=== PATIENT | female | born 1940 | race Caucasian/White ===

== ENCOUNTER 2017-11-04 12:03 | Observation (INO) | payer OTHER, MEDICARE ==
[~2017-11-04] VITALS: Ht 157.5 cm; Wt 55.5 kg
[~2017-11-04 12:03] MED LIST: ASPIRIN EC81 M1 PO; ATORVASTATIN CA10 M1 PO; DIOVAN40 MG PO; IBU600 MG PO; LEVOTHYROXINE100 MC1 PO; METOPROLOL SUCC25 M1 PO; SERTRALINE HCL50 MG PO
[2017-11-04 12:35] LABS: ABSOLUTE BASOPHIL COUNT 0 /CUMM (0.0-0.2); ABSOLUTE EOSINOPHIL COUNT 0.1 /CUMM (0.0-0.7); ABSOLUTE GRANULOCYTE CT 9.3 /CUMM (1.4-6.5); ABSOLUTE LYMPH COUNT 2.3 /CUMM (1.2-3.4); BASOPHIL % 0.3 % (0.0-2.0); GRANULOCYTE % 72.8 % (42.2-75.2); HEMATOCRIT 40.3 % (37-47); MEAN CORPUSCULAR HGB 29.3 PG (27.0-31.0); MEAN CORPUSCULAR HGB CONC 33.3 G/DL (33.0-37.0); MEAN CORPUSCULAR VOLUME 87.8 FL (81.0-99.0); MEAN PLATELET VOLUME 9.7 FL (7.4-10.4); PLATELET COUNT 240 /CUMM (130-400); RBC DISTRIBUTION WIDTH 13.1 % (11.5-14.5); RED BLOOD CELL CT 4.59 /CUMM (4.20-5.40); WHITE BLOOD CELL COUNT 12.7 /CUMM (4.8-10.8)
--- NOTE | 2017-11-04 12:37 | ED CARDIAC/CP/PALPITATIONS ---
See Addendum History of Present Illness General Chief Complaint: General Adult Stated Complaint: 1 HR AGO THROAT TIGHTNESS, PAIN ACROSS SHOULDERS Source: patient Exam Limitations: no limitations Vital Signs & Intake/Output Vital Signs & Intake/Output Vital Signs Date Time Temp Pulse Resp B/P B/P Pulse O2 O2 Flow FiO2 Mean Ox Delivery Rate 11/04 1953 99.3 93 18 108/57 95 Room Air 11/04 1817 99.1 87 17 114/59 95 Room Air 11/04 1502 97.1 83 16 151/64 98 Room Air 11/04 1339 97 Room Air 11/04 1206 78 16 119/63 97 Room Air Allergies Coded Allergies: Sulfa (Sulfonamide Antibiotics) (UNKNOWN 08/03/15) Reconcile Medications Aspirin (Ecotrin*) 81 MG TABLET.DR 1 TAB PO QPM PROPHO (Reported) Atorvastatin Calcium 10 MG TABLET 1 TAB PO QPM CHOLESTEROL (Reported) Cholecalciferol (Vitamin D3) (Vitamin D) 5,000 UNIT TABLET 1 TAB PO QPM VITAMIN SUPPORT (Reported) Cyanocobalamin (Vitamin B-12) 1,000 MCG TABLET 1 TAB PO QPM VITAMIN SUPPORT ( Reported) Levothyroxine Sodium 100 MCG TABLET 1 TAB PO DAILY AC THYROID (Reported) Magnesium Oxide (Magnesium) 250 MG TABLET 1 TAB PO QPM SUPPLEMENT (Reported) Metoprolol Succinate 25 MG TAB 0.5 TAB PO QPM HTN (Reported) Sertraline HCl 50 MG TABLET 1 TAB PO QPM DEPRESSION (Reported) Valsartan (Diovan) 40 MG TABLET 1 TAB PO DAILY HTN (Reported) Triage Note: 77 Y/O FEMALE BILATERAL "SHOULDER PAIN" X 1 HOUR. STATES SHE FEELS LIKE SHE CANNOT TAKE A DEEP BREATH, ENDORSES SOB - "ITS NOT BECAUSE I AM EXERTED, ITS BECAUSE OF THE TIGHTNESS". PT DENIES C/P. DENIES NAUSEA. EVAL'D BY JODY MONTGOMERY TAKEN TO ROOM 2 FOR EKG/BLOODWORK Triage Nurses Notes Reviewed? yes Onset: Gradual Duration: getting worse Timing: single episode today Location: substernal HPI: Patient is a 77-year-old female with past medical history of hypertension hyperlipidemia hypothyroidism who presents emergency room stating that when she woke up today she was in her normal state of health at approximate 7:30 AM she had toast and peanut butter 3 hours later at 10:30 she had a gradual onset of throat tightness discomfort with associated symptoms of bilateral shoulder pain substernal chest heaviness lightheaded sensation nausea and dizziness, patient tried to eat a early lunch however could not do this because of her symptoms in which patient presents emergency room. No aspirin was administered today Denies any fever chills cough hemoptysis leg swelling abdominal pain Patient's lottery clerk Augustine Randhawa MD (Eugene Sandhu) Past History Travel History Traveled to [place] past 21 day No Medical History Any Pertinent Medical History? see below for history Neurological: NONE EENT: NONE Cardiovascular: hypertension, hyperlipidemia Respiratory: NONE Gastrointestinal: GERD Hepatic: NONE Renal: NONE Musculoskeletal: NONE Psychiatric: NONE Endocrine: hypothyroidism Blood Disorders: NONE Cancer(s): breast cancer IT OPERATIONS SPECIALIST/Reproductive: NONE Surgical History Surgical History: right mastectomy 2002 Psychosocial History What is your primary language Slovenian Tobacco Use: Never used Family History Hx Contributory? No (Eugene Sandhu) Review of Systems Review of Systems Constitutional: Reports: no symptoms. EENTM: Reports: see HPI. Respiratory: Reports: see HPI. Cardiovascular: Reports: see HPI. GI: Reports: see HPI. Genitourinary: Reports: no symptoms. Musculoskeletal: Reports: no symptoms. Skin: Reports: no symptoms. Neurological/Psychological: Reports: no symptoms. Hematologic/Endocrine: Reports: no symptoms. Immunologic/Allergic: Reports: no symptoms. All Other Systems: Reviewed and Negative (Eugene Sandhu) Physical Exam Physical Exam General Appearance: no apparent distress, alert, comfortable Head: atraumatic Eyes: Bilateral: normal appearance. Ears, Nose, Throat: hearing grossly normal Neck: normal inspection Respiratory: normal breath sounds, chest non-tender Cardiovascular: regular rate/rhythm Gastrointestinal: normal bowel sounds, soft, non-tender Extremities: normal inspection Skin: intact, normal color, warm/dry Core Measures ACS in differential dx? Yes CVA/TIA Diagnosis No Sepsis Present: No Sepsis Focused Exam Completed? No (Eugene Sandhu) Progress Differential Diagnosis: AMI, aortic dissection, atrial fibrillation, cholecystitis, CHF/pulm edema, costochondritis, hyperkalemia, hypovolemia, hyperthyroid, hyperventilation, intracranial hemorrhage, musculoskeletal pain, myocarditis, pancreatitis, pericarditis, pneumonia, pneumothorax, PSVT, pulmonary embolism, PUD/GERD, PVCs/PACs, respiratory failure, sepsis, unstable angina, V-fib/V-Tach, WPW syndrome Plan of Care: Orders Procedure Date/time Status Heart Healthy Diet 11/05 B Active BASIC ELECTROLYTES PLUS BUN&CR 11/05 0600 Active Heart Healthy Diet 11/04 D Complete TROPONIN LEVEL 11/04 1800 Complete EKG 11/04 1800 Active PT Evaluate & Treat 11/04 1740 Active Pathway - chart 11/04 1740 Active House Staff 11/04 1740 Active Patient Data 11/04 1740 Active CASE MANAGEMENT CONSULT 11/04 1740 Active Code Status 11/04 1740 Active Patient Data 11/[address] in observation 11/04 1558 Active Misc Message 11/04 1558 Active ED Holding Orders 11/04 1558 Active Vital Signs 11/04 1558 Active Code Status 11/04 1558 Complete Intake & Output 11/04 1339 Active Add-on Test (ER Only) 11/04 1310 Active TSH REFLEX 11/04 1220 Complete LIPID PANEL 11/04 1220 Complete D-DIMER 11/04 1220 Complete TROPONIN LEVEL 11/04 1210 Complete COMPREHENSIVE METABOLIC PANEL 11/04 1210 Complete CBC WITHOUT DIFFERENTIAL 11/04 1210 Complete EKG 11/04 1210 Active Lab Add-on Test 11/04 UNK Active VTE Mechanical Prophylaxis 11/04 UNK Active Vital Signs 11/04 UNK Active MISTAKE 11/04 UNK Active Telemetry/Floor Finisher Helper 11/04 UNK Active Intake & Output 11/04 UNK Active Current Medications Sig/Stan Start time Last Medication Dose Stop Time Status Admin Atorvastatin Calcium 40 MG 1700 11/05 1700 AC (Lipitor) Enoxaparin Sodium 40 MG DAILY 11/05 09 AC (Lovenox) Losartan Potassium 12.5 MG DAILY 11/05 09 AC (Cozaar) Levothyroxine Sodium 0.1 MG DAILY AC 11/05 0700 AC (Synthroid) Aspirin Buffered 81 MG QPM 11/04 2100 AC (Ecotrin) Metoprolol Succinate 12.5 MG QPM 11/04 2100 AC (Toprol XL) Sertraline HCl 50 MG QPM 11/04 2100 AC (Zoloft) Nitroglycerin 0.4 MG Q 5 MINUTES X 3 DO.. 11/04 1800 AC (Nitrostat) Acetaminophen 650 MG Q6P PRN 11/04 1745 AC (Tylenol) Laboratory Tests 11/04/17 1825: Troponin I < 0.01 11/04/17 1220: Anion Gap 12, Estimated GFR > 60, BUN/Creatinine Ratio 24.3, Glucose 99, Calcium 9.8, Total Bilirubin 0.7, AST 25, ALT 29, Alkaline Phosphatase 71, Troponin I < 0.01, Total Protein 7.4, Albumin 4.1, Globulin 3.3, Albumin/Globulin Ratio 1.2, Triglycerides 150, Cholesterol 125, LDL Cholesterol, Calc 45 L, HDL Cholesterol 50, Cholesterol/HDL Ratio 2, TSH &T3 &Free T4 Intrp 3.100, D-Dimer High Sensitivty < 200, CBC w Diff NO MAN DIFF REQ, RBC 4.59, MCV 87.8, MCH 29.3, MCHC 33.3, RDW 13.1, MPV 9.7, Gran % 72.8, Lymphocytes % 18.1 L, Monocytes % 7.8, Eosinophils % 1.0, Basophils % 0.3, Absolute Granulocytes 9.3 H, Absolute Lymphocytes 2.3, Absolute Monocytes 1.0 H, Absolute Eosinophils 0.1, Absolute Basophils 0 Patient upon initial presentation is complaining of substernal chest heaviness with concerning associated symptoms patient was given aspirin and nitroglycerin after this was administered patient had complete resolution of her symptoms, discussed patient with Augustine Randhawa MD who is aware of patient's initial clinical presentation and will consult for placement in observation Initial EKG shows no concerns of ischemia and initial troponin was unremarkable as well as d-dimer as well as chest x-ray. Discussed placement and observation with patient who agrees and has no questions Discussed patient with Dr. Nix who is covering for Dr. Craven patient will be placed in telemetry observation Diagnostic Imaging: Viewed by Me: Radiology Read. Radiology Impression: no acute abnormality, no fracture Initial ED EKG: normal intervals, normal QRS complex, NSR 61 BPM Comments: PATIENT: VÍCTOR FAUSTIN PRESENT AGE: 77 PATIENT ACCOUNT NO: [id number] : 42 LOCATION: [facility] ORDERING PHYSICIAN: Davide VERA SERVICE DATE: 11/04/17-1210 EXAM TYPE: RAD - XRY-CHEST XRAY, TWO VIEWS EXAMINATION: XR CHEST CLINICAL INFORMATION: Shortness of breath. COMPARISON: 05/12/2015 TECHNIQUE: 2 views of the chest were obtained. FINDINGS: The lungs are well expanded. There is no focal consolidation, edema, or effusion. No pneumothorax. The cardiomediastinal silhouette is within normal limits. No acute osseous abnormality. Right axillary surgical clips are present. IMPRESSION: No acute pulmonary findings. DICTATED BY: Vicente Mead MD DATE/TIME DICTATED:11/04/17 1359 PHOTO SPECIALIST:ROMERO DATE/TIME TRANSCRIBED:11/04/17 / (Eugene Sandhu) Departure Departure Disposition: STILL A PATIENT Condition: Stable Clinical Impression Primary Impression: Angina at rest Referrals: Herber CHACON,Dalton Moctezuma (PCP/Family) Departure Forms: Customer Survey General Discharge Information Observation Note Spoke With: Valentin Nix MD Physician Advisor Notified: ROMEO CHACON,BRIE Carden[address] Place Patient In: Non-ED OBS Care Area Rationale for Observation: My rational for observation is as follows [patient requires telemetry observation for concerns of angina with improvement of nitroglycerin of her chest pain, patient requires cardiology consultation and repeat labs repeat EKG] . (Eugene Sandhu) PA/DEV OPS ENGINEER Co-Sign Statement Statement: ED Attending supervision documentation- [X] I saw and evaluated the patient. I have also reviewed all the pertinent lab results and diagnostic results. I agree with the findings and the plan of care as documented in the PA's/DEV OPS ENGINEER's documentation. Patient presents for evaluation of throat tightness and bilateral shoulder pain. Physical examination reveals a relatively comfortable appearing woman with an unremarkable heart and lung examination. [] I have reviewed the ED Record and agree with the PA's/DEV OPS ENGINEER's documentation. [] Additions or exceptions (if any) to the PAs/DEV OPS ENGINEER's note and plan are summarized below: [] (Modesta CHACON,Jesus Rico) Critical Care Note Critical Care Note Critical Care Time: 30-74 min (Eugene Sandhu)
--- NOTE | 2017-11-04 14:08 | RADIOLOGY REPORT ---
EXAMINATION: XR CHEST CLINICAL INFORMATION: Shortness of breath. COMPARISON: 05/12/2015 TECHNIQUE: 2 views of the chest were obtained. FINDINGS: The lungs are well expanded. There is no focal consolidation, edema, or effusion. No pneumothorax. The cardiomediastinal silhouette is within normal limits. No acute osseous abnormality. Right axillary surgical clips are present. IMPRESSION: No acute pulmonary findings.
[2017-11-04] MEDS ORDERED: VITAMIN B-121000 MC3 PO (15:04)
[2017-11-04] MEDS ORDERED: MAGNESIUM250 M2 PO (15:04)
[2017-11-04] MEDS ORDERED: VITAMIN D5000 UNIT PO (15:05)
--- NOTE | 2017-11-04 17:25 | History & Physical ---
Rima Lee MDapna 11/04/17 3201: General Information and HPI MD Statement: I have seen and personally examined DHARA FAUSTIN and documented this H&P. The patient is a 77 year old F who presented with a patient stated chief complaint of [neck tightness]. Source of Information: patient Exam Limitations: no limitations History of Present Illness: 77-year-old female with past medical history of hypertension, hyperlipidemia, hypothyroidism, breast cancer [2001] was on chemo and radio, came to [place] ER with complaints of neck fullness and tightness, right arm pressure//discomfort more compared to the left. Patient was in usual state of health until today morning. Patient had peanut butter for her breakfast and 3 hours later patient suddenly felt neck fullness followed by discomfort on the right arm radiating later to the left arm. She tried to eat but could not and also felt lightheaded throughout this episode. She denies chest pain, palpitation, shortness of breath, nausea, vomiting, abdominal pain, headache, blackout, weakness, tingling sensation, numbness, fall, loss of consciousness during the same time. Patient never had these kind of symptoms in the past. Patient sees Dr. Craven and Dr. Randhawa for the past 2-[address] Randhawa for? Low ejection fraction with an EF of 50%. Patient also had cardiac cath done 2 years ago. Patient says she had hepatitis as a child [never took any treatment], questionable tuberculosis in the past with no history of any treatment. Patient's son who is 40 years old is diagnosed with congenital heart disease with heart failure. Allergies/Medications Allergies: Coded Allergies: Sulfa (Sulfonamide Antibiotics) (UNKNOWN 08/03/15) Home Med list Aspirin (Ecotrin*) 81 MG TABLET.DR 1 TAB PO QPM PROPHO (Reported) Atorvastatin Calcium 10 MG TABLET 1 TAB PO QPM CHOLESTEROL (Reported) Atorvastatin Calcium 40 MG TABLET 40 MG PO 1700 Heart Cholecalciferol (Vitamin D3) (Vitamin D) 5,000 UNIT TABLET 1 TAB PO QPM VITAMIN SUPPORT (Reported) Cyanocobalamin (Vitamin B-12) 1,000 MCG TABLET 1 TAB PO QPM VITAMIN SUPPORT ( Reported) Levothyroxine Sodium 100 MCG TABLET 1 TAB PO DAILY AC THYROID (Reported) Magnesium Oxide (Magnesium) 250 MG TABLET 1 TAB PO QPM SUPPLEMENT (Reported) Metoprolol Succinate 25 MG TAB 0.5 TAB PO QPM HTN (Reported) Sertraline HCl 50 MG TABLET 1 TAB PO QPM DEPRESSION (Reported) Valsartan (Diovan) 40 MG TABLET 1 TAB PO DAILY HTN (Reported) Compliance With Home Meds: GOOD Past History Travel History Traveled to [place] past 21 day No Medical History Neurological: NONE EENT: NONE Cardiovascular: hypertension, hyperlipidemia Respiratory: NONE Gastrointestinal: GERD Hepatic: NONE Renal: NONE Musculoskeletal: NONE Psychiatric: NONE Endocrine: hypothyroidism Blood Disorders: NONE Cancer(s): breast cancer ACCOUNTING CONSULTANT/Reproductive: NONE Surgical History Surgical History: right mastectomy 2002 ECHO Results (as available) EF% 50 Past Family/Social History Family History Relations & Conditions if any MOTHER (breast cancer). Psychosocial History Where do you live? Home Who Do You Live With? spouse Services at Home: None Primary Language: Romanian Smoking Status: Never Smoked ETOH Use: occasional use Functional Ability ADLs Independent: dressing, eating, toileting, bathing. Ambulation: independent IADLs Independent: shopping, housework, finances, food prep, telephone, transportation , medication admin. Review of Systems Review of Systems Constitutional: Reports: no symptoms. Cardiovascular: Reports: no symptoms. Respiratory: Reports: no symptoms. GI: Reports: no symptoms. Exam & Diagnostic Data Last 24 Hrs of Vital Signs/I&O Vital Signs Date Time Temp Pulse Resp B/P B/P Pulse O2 O2 Flow FiO2 Mean Ox Delivery Rate 11/04 1817 99.1 87 17 114/59 95 Room Air 11/04 1502 97.1 83 16 151/64 98 Room Air 11/04 1339 97 Room Air 11/04 1206 78 16 119/63 97 Room Air Intake & Output 11/04 1600 11/04 0800 11/04 0000 Intake Total 0 Output Total Balance 0 Intake, IV 0 Patient 125 lb Weight Weight Reported by Patient Measurement Method Physical Exam General Appearance Alert, Oriented X3, Cooperative, No Acute Distress Neck No JVD, No thryomegaly, +2 Carotid Pulse wo Bruit Cardiovascular Normal S1, Normal S2, systolic murmur Lungs Clear to Auscultation Abdomen Soft, No Tenderness, No Hepatospenomegaly Neurological Normal Speech, Strength at 5/5 X4 Ext, Normal Tone, Sensation Intact, Cranial Nerves 3-12 NL Extremities No Cyanosis, No Edema, Normal Pulses Last 24 Hrs of Labs/Italo: Laboratory Tests 11/04/17 1825: Troponin I < 0.01 11/04/17 1220: Anion Gap 12, Estimated GFR > 60, BUN/Creatinine Ratio 24.3, Glucose 99, Calcium 9.8, Total Bilirubin 0.7, AST 25, ALT 29, Alkaline Phosphatase 71, Troponin I < 0.01, Total Protein 7.4, Albumin 4.1, Globulin 3.3, Albumin/Globulin Ratio 1.2, Triglycerides 150, Cholesterol 125, LDL Cholesterol, Calc 45 L, HDL Cholesterol 50, Cholesterol/HDL Ratio 2, TSH &T3 &Free T4 Intrp 3.100, D-Dimer High Sensitivty < 200, CBC w Diff NO MAN DIFF REQ, RBC 4.59, MCV 87.8, MCH 29.3, MCHC 33.3, RDW 13.1, MPV 9.7, Gran % 72.8, Lymphocytes % 18.1 L, Monocytes % 7.8, Eosinophils % 1.0, Basophils % 0.3, Absolute Granulocytes 9.3 H, Absolute Lymphocytes 2.3, Absolute Monocytes 1.0 H, Absolute Eosinophils 0.1, Absolute Basophils 0 Diagnostic Data EKG Results Left atrial abnormality, left ventricular hypertrophy, normal axis Assessment/Plan Assessment: 77-year-old female with past medical history of hypertension, hyperlipidemia, hypothyroidism, breast cancer [2001] was on chemo and radio, came to [place] ER with complaints of neck fullness and tightness, right arm pressure//discomfort more compared to the left. Admission vitals Temperature 97.1, pulse rate 83, respiratory rate 16, blood pressure 151/64, saturation 98 at room air Admission labs WBC 12.7, hemoglobin 13.4, platelet count 240, sodium 142, potassium 4, chloride 104, BUN 17, creatinine 0.7, troponin 0 0.01, d-dimer 200 Imaging Chest x-ray No acute pulmonary findings. Assessment and plan 1. Unstable angina 2. Hypertension 3. Hypo thyroidism * OBSERVE IN telemetry * Every shift vitals * Troponin and EKG 2 more sets * Continue her home medication atorvastatin, losartan 2.5 mg, levothyroxine, sublingual nitroglycerin as needed, citrulline 50, metoprolol 12.5, aspirin. * Cardiology consult tomorrow. Core Measures/Misc (01/27) Acute Coronary Syndrome ACS Diagnosis: No Congestive Heart Failure Congestive Heart Failure Diagnosis No Cerebrovascular Accident CVA/TIA Diagnosis: No VTE (View Protocol) VTE Risk Factors Age>40 No Mechanical VTE Prophylaxis d/t Other No VTE Pharm Prophylaxis d/t Other Sepsis (View protocol) Sepsis Present: No If YES complete Sepsis Event Note If YES complete Sepsis Event Note Max CHACON,[facility] 11/04/171958: Core Measures/Misc (01/27) Sepsis (View protocol) If YES complete Sepsis Event Note If YES complete Sepsis Event Note Resident Review Statement Resident Statement: examined this patient, discussed with international travel consultant, agreed with international travel consultant, discussed with family, reviewed EMR data (avail), discussed with nursing Other Findings: Dhara a 77 year old female with past medical history significant for hypertension, hyperlipidemia, hypothyroidism, right-sided breast cancer status post mastectomy, chemotherapy, and radiotherapy follow-up with Dr. Ornelas., cardiac cath in [facility] couple of years ago for clear reason with no stent placement, hepatitis?, TB?. Patient presented to ED with chief complaint of bilateral shoulder pain associated with lightheadedness, shortness of breath. Patient resolved with nitroglycerin and aspirin in ED. Patient is hemodynamically stable and denied any chest pain, shortness of breath, palpitation at the time of interview. Initial troponins and EKG are negative. Patient follow with Augustine Randhawa MD as a referral from her PCP 2-3 years ago for abnormal EKG. Echocardiogram was obtained in August per patient's report. Problem list #Unstable angina (chest tightness and bilateral shoulder pain at rest relieved by nitroglycerin and aspirin) #Hypertension, hyperlipidemia #Hypothyroidism Plan Observe in telemetry floor Vital signs every shift Trend drops and EKG Aspirin, Lipitor 40 mg, nitroglycerin tabs when necessary chest pain Obtain lipid profile Obtain TSH with reflex to T4, T3 Will hold off ordering echocardiogram since the patient had a recent echogram in August, follow cardiology recommendation Cardiology consultation Augustine Randhawa MD Continue home medication Repeat PEEP in a.m. Patient reporting history of hepatitis, will obtain hepatitis panel Records from PCP regarding hepatitis and history of TB DVT prophylaxis Lovenox Code full Diet heart healthy Valentin Nix MD 11/05/17 0928: Assessment/Plan As Ranked By This Provider Problem List: 1. Chest pain Core Measures/Misc (01/27) Sepsis (View protocol) If YES complete Sepsis Event Note If YES complete Sepsis Event Note
--- NOTE | 2017-11-04 18:20 | PN- Gen Med ---
Assessment/Plan Medical Assessment: 77 year old female patient of Dr Craven, this AM had pressure in her chest around 10 AM came tot he ER as soon as NTG was given the symptoms dissappeared. will keep in observation serial EKGs and troponins cardiology follow up. Current Medications Sig/Stan Start time Last Medication Dose Route Stop Time Status Admin Acetaminophen 650 MG Q6P PRN 11/04 1745 UNVr PO Aspirin 0 .STK-MED ONE 11/04 1322 DC PO Aspirin 325 MG ONCE ONE 11/04 1315 DC 11/04 PO 11/04 1316 1328 Aspirin Buffered 81 MG QPM 11/04 2100 UNVr PO Atorvastatin Calcium 40 MG 1700 11/05 1700 UNVr PO Enoxaparin Sodium 40 MG DAILY 11/05 0900 UNVr SC Levothyroxine Sodium 0.1 MG DAILY AC 11/05 0700 AC PO Losartan Potassium 40 MG DAILY 11/05 0900 AC PO Metoprolol Succinate 12.5 MG QPM 11/04 2100 AC PO Nitroglycerin 0.4 MG Q 5 MINUTES X 3 DO.. 11/04 1800 AC SL Nitroglycerin 0 .STK-MED ONE 11/04 1323 DC SL Nitroglycerin 0.4 MG ONCE ONE 11/04 1315 DC 11/04 SL 11/04 1316 1328 Sertraline HCl 50 MG QPM 11/04 2100 AC PO Laboratory Tests 11/04/17 1220: Anion Gap 12, Estimated GFR > 60, BUN/Creatinine Ratio 24.3, Glucose 99, Calcium 9.8, Total Bilirubin 0.7, AST 25, ALT 29, Alkaline Phosphatase 71, Troponin I < 0.01, Total Protein 7.4, Albumin 4.1, Globulin 3.3, Albumin/Globulin Ratio 1.2, Triglycerides 150, Cholesterol 125, LDL Cholesterol, Calc 45 L, HDL Cholesterol 50, Cholesterol/HDL Ratio 2, TSH &T3 &Free T4 Intrp Pending, D-Dimer High Sensitivty < 200, CBC w Diff NO MAN DIFF REQ, RBC 4.59, MCV 87.8, MCH 29.3, MCHC 33.3, RDW 13.1, MPV 9.7, Gran % 72.8, Lymphocytes % 18.1 L, Monocytes % 7.8, Eosinophils % 1.0, Basophils % 0.3, Absolute Granulocytes 9.3 H, Absolute Lymphocytes 2.3, Absolute Monocytes 1.0 H, Absolute Eosinophils 0.1, Absolute Basophils 0 Vital Signs Date Time Temp Pulse Resp B/P B/P Pulse O2 O2 Flow FiO2 Mean Ox Delivery Rate 11/04 1817 99.1 87 17 114/59 95 Room Air 11/04 1502 97.1 83 16 151/64 98 Room Air 11/04 1339 97 Room Air 11/04 1206 78 16 119/63 97 Room Air Intake & Output 11/04 1600 Intake Total 0 Output Total Balance 0 Intake, IV 0 Patient 125 lb Weight Weight Reported by Patient Measurement Method Problem List: 1. Chest pain Subjective Review of Systems Constitutional: Reports: see HPI. Objective Last 24 Hrs of Vital Signs/I&O Vital Signs Date Time Temp Pulse Resp B/P B/P Pulse O2 O2 Flow FiO2 Mean Ox Delivery Rate 11/04 1817 99.1 87 17 114/59 95 Room Air 11/04 1502 97.1 83 16 151/64 98 Room Air 11/04 1339 97 Room Air 11/04 1206 78 16 119/63 97 Room Air Intake & Output 11/04 1600 11/04 0800 11/04 0000 Intake Total 0 Output Total Balance 0 Intake, IV 0 Patient 125 lb Weight Weight Reported by Patient Measurement Method Physical Exam General Appearance: Alert, Oriented X3, Cooperative, No Acute Distress Skin: No Rashes
[2017-11-04 22:23] VITALS: BP 128/64
[2017-11-05 06:39] VITALS: BP 104/50
--- NOTE | 2017-11-05 06:40 | PN-Observation ---
Observation Note Observation Note _ I have personally examined VÍCTOR FAUSTIN. her disposition is uncertain at this time. Before a determination can be made, she requires continued observation for the following reasons [unstable angina]. Assessment/Plan Medical Assessment: 77-year-old female with past medical history of hypertension, hyperlipidemia, hypothyroidism, breast cancer [2001] was on chemo and radio, came to [facility] with complaints of neck fullness and tightness, right arm pressure//discomfort more compared to the left. Assessment and plan 1. Unstable angina 2. Hypertension 3. Hypo thyroidism * Unstable angina-patient does not have any pain. Able to ambulate well without any chest pain. 3 sets of troponin and EKG negative. She was seen by Dr. Deleon today who suggested to discharge her and follow with him as outpatient. Otherwise patient will go with her home medication atorvastatin, losartan, levothyroxine. Problem List: 1. Angina at rest Subjective Follow-up For: Unstable angina Subjective: Patient seen and examined at bedside no overnight events. Denies chest pain, palpitation, nausea, vomiting, abdominal pain. Review of Systems Constitutional: Reports: no symptoms. Objective Last 24 Hrs of Vital Signs/I&O Vital Signs Date Time Temp Pulse Resp B/P B/P Pulse O2 O2 Flow FiO2 Mean Ox Delivery Rate 11/05 0854 72 118/72 11/05 0639 98.0 72 18 104/50 95 Room Air 11/04 2301 89 128/64 11/04 2223 98.2 90 18 128/64 96 Room Air 11/04 1954 99.3 93 18 108/57 95 Room Air 11/04 1817 99.1 87 17 114/59 95 Room Air Intake & Output 11/05 1600 11/05 0800 11/05 0000 Intake Total 220 220 Output Total Balance 220 220 Intake, Oral 220 220 Patient 122 lb Weight Weight Bed scale Measurement Method Physical Exam General Appearance: Alert, Oriented X3, Cooperative, No Acute Distress Cardiovascular: Regular Rate, Normal S1, Normal S2, No Murmurs Lungs: Normal Air Movement Abdomen: Soft, No Tenderness, No Hepatospenomegaly, No Masses Neurological: Normal Speech, Strength at 5/5 X4 Ext, Normal Tone, Sensation Intact, Cranial Nerves 3-12 NL Current Medications: Current Medications Sig/Stan Start time Last Medication Dose Route Stop Time Status Admin Acetaminophen 650 MG Q6P PRN 11/04 1745 DCD PO Aspirin Buffered 81 MG QPM 11/04 2100 DCD 11/04 PO 2300 Atorvastatin Calcium 40 MG 1700 11/05 1700 DCD PO Enoxaparin Sodium 40 MG DAILY 11/05 0900 DCD 11/05 SC 0854 Levothyroxine Sodium 0.1 MG DAILY AC 11/05 0700 DCD 11/05 PO 0543 Losartan Potassium 12.5 MG DAILY 11/05 0900 DCD 11/05 PO 0854 Metoprolol Succinate 12.5 MG QPM 11/04 2100 DCD 11/04 PO 2301 Nitroglycerin 0.4 MG Q 5 MINUTES X 3 DO.. 11/04 1800 DCD SL Sertraline HCl 50 MG QPM 11/04 2100 DCD 11/04 PO 2300 Last 24 Hrs of Labs/Mics: Laboratory Tests 11/05/17 1045: Troponin I < 0.01 11/05/17 0615: Anion Gap 9, Estimated GFR > 60, BUN/Creatinine Ratio 24.3, Hepatitis A IgM Ab NONREACTIVE, Hep Bs Antigen NONREACTIVE, Hep B Core IgM Ab Conf NONREACTIVE, Hepatitis C Antibody NONREACTIVE 11/04/17 1825: Troponin I < 0.01
[2017-11-05 08:54] VITALS: BP 118/72
--- NOTE | 2017-11-05 09:16 | Cons- Cardiology ---
General Information and HPI Consulting Request Requested By: lu History of Present Illness: This is a patient of Dr Major and group, i was not aware. Please disregard this note. Allergies/Medications Allergies: Coded Allergies: Sulfa (Sulfonamide Antibiotics) (UNKNOWN 08/03/15) Home Med List: Aspirin (Ecotrin*) 81 MG TABLET.DR 1 TAB PO QPM PROPHO (Reported) Atorvastatin Calcium 10 MG TABLET 1 TAB PO QPM CHOLESTEROL (Reported) Cholecalciferol (Vitamin D3) (Vitamin D) 5,000 UNIT TABLET 1 TAB PO QPM VITAMIN SUPPORT (Reported) Cyanocobalamin (Vitamin B-12) 1,000 MCG TABLET 1 TAB PO QPM VITAMIN SUPPORT ( Reported) Levothyroxine Sodium 100 MCG TABLET 1 TAB PO DAILY AC THYROID (Reported) Magnesium Oxide (Magnesium) 250 MG TABLET 1 TAB PO QPM SUPPLEMENT (Reported) Metoprolol Succinate 25 MG TAB 0.5 TAB PO QPM HTN (Reported) Sertraline HCl 50 MG TABLET 1 TAB PO QPM DEPRESSION (Reported) Valsartan (Diovan) 40 MG TABLET 1 TAB PO DAILY HTN (Reported) Past History Family History Relations & Conditions If Any: MOTHER (breast cancer). Exam & Diagnostic Data Vital Signs and I&O na Assessment/Plan Assessment/Plan na Consult Acknowledgment - Thank you for your consult request. Aspirin Buffered 81 MG QPM 11/04 2100 AC 11/04 PO 2300 Atorvastatin Calcium 40 MG 1700 11/05 1700 AC PO Enoxaparin Sodium 40 MG DAILY 11/05 0900 AC 11/05 SC 0854 Levothyroxine Sodium 0.1 MG DAILY AC 11/05 0700 AC 11/05 PO 0543 Losartan Potassium 12.5 MG DAILY 11/05 0900 AC 11/05 PO 0854 Metoprolol Succinate 12.5 MG QPM 11/04 2100 AC 11/04 PO 2301 Nitroglycerin 0.4 MG Q 5 MINUTES X 3 DO.. 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 Psychosocial History Where Do You Live? Home Who Do You Live With? spouse Services at Home: None Primary Language: [place] Citizen Smoking Status: Never Smoked ETOH Use: occasional use Functional Ability ADLs Independent: dressing, eating, toileting, bathing. Ambulation: independent IADLs Independent: shopping, housework, finances, food prep, telephone, transportation , medication admin. ECHO Results (as available) EF% 50 Exam & Diagnostic Data Vital Signs and I&O Vital Signs Date Time Temp Pulse Resp B/P B/P Pulse O2 O2 Flow FiO2 Mean Ox Delivery Rate 11/05 0854 72 118/72 11/05 0639 98.0 72 18 104/50 95 Room Air 11/04 2301 89 128/64 11/04 2223 98.2 90 18 128/64 96 Room Air 11/04 1954 99.3 93 18 108/57 95 Room Air 11/04 1817 99.1 87 17 114/59 95 Room Air 11/04 1502 97.1 83 16 151/64 98 Room Air 11/04 1339 97 Room Air 11/04 1206 78 16 119/63 97 Room Air Intake & Output 11/05 1600 11/05 0800 11/05 0000 11/04 1600 11/04 0800 11/04 0000 Intake Total 220 220 0 Output Total Balance 220 220 0 Intake, IV 0 Intake, Oral 220 220 Patient 122 lb 125 lb Weight Weight Bed scale Reported by Patient Measurement Method Labs/Italo Results: Laboratory Tests 11/05 11/04 11/04 0615 1825 1220 Chemistry Sodium (137 - 145 mmol/L) 141 142 Potassium (3.5 - 5.1 mmol/L) 4.2 4.0 Chloride (98 - 107 mmol/L) 105 104 Carbon Dioxide (22 - 30 mmol/L) 26 25 Anion Gap (5 - 16) 9 12 BUN (7 - 17 mg/dL) 17 17 Creatinine (0.5 - 1.0 mg/dL) 0.7 0.7 Estimated GFR (>60 ml/min) > 60 > 60 BUN/Creatinine Ratio (7 - 25 %) 24.3 24.3 Glucose (65 - 99 mg/dL) 99 Calcium (8.4 - 10.2 mg/dL) 9.8 Total Bilirubin (0.2 - 1.3 mg/dL) 0.7 AST (14 - 36 U/L) 25 ALT (9 - 52 U/L) 29 Alkaline Phosphatase (<127 U/L) 71 Troponin I (< 0.11 ng/ml) < 0.01 < 0.01 Total Protein (6.3 - 8.2 g/dL) 7.4 Albumin (3.5 - 5.0 g/dL) 4.1 Globulin (1.9 - 4.2 gm/dL) 3.3 Albumin/Globulin Ratio (1.1 - 2.2 %) 1.2 Triglycerides (<150 mg/dL) 150 Cholesterol (<200 MG/DL) 125 LDL Cholesterol, Calc (65 - 129 mg/dL) 45 L HDL Cholesterol (40 - 60 mg/dL) 50 Cholesterol/HDL Ratio (0.00 - 4.23 %) 2 TSH &T3 &Free T4 Intrp (0.270 - 4.20 uIU/mL) 3.100 Coagulation D-Dimer High Sensitivty (0 - 243 ng/ml) < 200 Hematology CBC w Diff NO MAN DIFF REQ WBC (4.8 - 10.8 /CUMM) 12.7 H RBC (4.20 - 5.40 /CUMM) 4.59 Hgb (12.0 - 16.0 G/DL) 13.4 Hct (37 - 47 %) 40.3 MCV (81.0 - 99.0 FL) 87.8 MCH (27.0 - 31.0 PG) 29.3 MCHC (33.0 - 37.0 G/DL) 33.3 RDW (11.5 - 14.5 %) 13.1 Plt Count (130 - 400 /CUMM) 240 MPV (7.4 - 10.4 FL) 9.7 Gran % (42.2 - 75.2 %) 72.8 Lymphocytes % (20.5 - 51.1 %) 18.1 L Monocytes % (1.7 - 9.3 %) 7.8 Eosinophils % (0 - 5 %) 1.0 Basophils % (0.0 - 2.0 %) 0.3 Absolute Granulocytes (1.4 - 6.5 /CUMM) 9.3 H Absolute Lymphocytes (1.2 - 3.4 /CUMM) 2.3 Absolute Monocytes (0.10 - 0.60 /CUMM) 1.0 H Absolute Eosinophils (0.0 - 0.7 /CUMM) 0.1 Absolute Basophils (0.0 - 0.2 /CUMM) 0 Serology Hepatitis A IgM Ab (NONREACTIVE) Pending Hep Bs Antigen (NONREACTIVE) Pending Hep B Core IgM Ab Conf (NONREACTIVE) Pending Hepatitis C Antibody (NONREACTIVE) Pending Assessment/Plan Consult Acknowledgment - Thank you for your consult request.
--- NOTE | 2017-11-05 10:04 | PN- Att Addend ---
Attending Addendum Attending Brief Note Covering attending note: Patient hasn't had any chest pain since admission. Vital signs are stable no fever. No changes on physical.Troponins negative. cardiology to see patient, if OK and ambulates well without pain will discharge and continue workup as outpatient. 24 TOTALS 11/05 0000 11/04 0000 Intake Total 220 Output Total Balance 220 Intake, IV 0 Intake, Oral 220 Patient 122 lb Weight Weight Bed scale Measurement Method Current Medications Sig/Stan Start time Last Medication Dose Route Stop Time Status Admin Acetaminophen 650 MG Q6P PRN 11/04 1745 AC PO Aspirin 0 .STK-MED ONE 11/04 1322 DC PO Aspirin 325 MG ONCE ONE 11/04 1315 DC 11/04 PO 11/04 1316 1328 Aspirin Buffered 81 MG QPM 11/04 2100 AC 11/04 PO 2300 Atorvastatin Calcium 40 MG 1700 11/05 1700 AC PO Enoxaparin Sodium 40 MG DAILY 11/05 0900 AC 11/05 SC 0854 Levothyroxine Sodium 0.1 MG DAILY AC 11/05 0700 AC 11/05 PO 0543 Losartan Potassium 12.5 MG DAILY 11/05 0900 AC 11/05 PO 0854 Metoprolol Succinate 12.5 MG QPM 11/04 2100 AC 11/04 PO 2301 Nitroglycerin 0.4 MG Q 5 MINUTES X 3 DO.. 11/04 1800 AC SL Nitroglycerin 0 .STK-MED ONE 11/04 1323 DC SL Nitroglycerin 0.4 MG ONCE ONE 11/04 1315 DC 11/04 SL 11/04 1316 1328 Sertraline HCl 50 MG QPM 11/04 2100 AC 11/04 PO 2300 Laboratory Tests 11/05/17 0615: Anion Gap 9, Estimated GFR > 60, BUN/Creatinine Ratio 24.3, Hepatitis A IgM Ab Pending, Hep Bs Antigen Pending, Hep B Core IgM Ab Conf Pending, Hepatitis C Antibody Pending 11/04/17 1825: Troponin I < 0.01 11/04/17 1220: Anion Gap 12, Estimated GFR > 60, BUN/Creatinine Ratio 24.3, Glucose 99, Calcium 9.8, Total Bilirubin 0.7, AST 25, ALT 29, Alkaline Phosphatase 71, Troponin I < 0.01, Total Protein 7.4, Albumin 4.1, Globulin 3.3, Albumin/Globulin Ratio 1.2, Triglycerides 150, Cholesterol 125, LDL Cholesterol, Calc 45 L, HDL Cholesterol 50, Cholesterol/HDL Ratio 2, TSH &T3 &Free T4 Intrp 3.100, D-Dimer High Sensitivty < 200, CBC w Diff NO MAN DIFF REQ, RBC 4.59, MCV 87.8, MCH 29.3, MCHC 33.3, RDW 13.1, MPV 9.7, Gran % 72.8, Lymphocytes % 18.1 L, Monocytes % 7.8, Eosinophils % 1.0, Basophils % 0.3, Absolute Granulocytes 9.3 H, Absolute Lymphocytes 2.3, Absolute Monocytes 1.0 H, Absolute Eosinophils 0.1, Absolute Basophils 0 Vital Signs Date Time Temp Pulse Resp B/P B/P Pulse O2 O2 Flow FiO2 Mean Ox Delivery Rate 11/05 0854 72 118/72 11/05 0639 98.0 72 18 104/50 95 Room Air 11/04 2301 89 128/64 11/04 2223 98.2 90 18 128/64 96 Room Air 11/04 1954 99.3 93 18 108/57 95 Room Air 11/04 1817 99.1 87 17 114/59 95 Room Air 11/04 1502 97.1 83 16 151/64 98 Room Air 11/04 1339 97 Room Air 11/04 1206 78 16 119/63 97 Room Air
[2017-11-05] MEDS ORDERED: ATORVASTATIN CA40 M1 PO ×2 (10:30→13:39)
--- NOTE | 2017-11-05 10:34 | Patient Discharge Instructions ---
Discharge Instructions General Discharge Information You were seen/treated for: Unstable angina Watch for these problems: In case of chest pain, palpitation, shortness of breath, dizziness please go to the nearest emergency room Special Instructions: Please follow-up with your primary care provider, [facility]man within 1-2 weeks of discharge and let them know about your recent admission at [facility] Diet Continue normal diet: No Recommended Diet: Heart Healthy Activity Full Activity/No Limits: No Activity Self Limited: Yes Acute Coronary Syndrome Inclusion Criteria At DC or during hospital stay patient has or had the following: ACS DIAGNOSIS No Discharge Core Measures Meds if any: Prescribed or Continued at Discharge Meds if any: NOT Prescribed or Continued at Discharge Congestive Heart Failure Inclusion Criteria At DC or during hospital stay patient has or had the following: CHF DIAGNOSIS No Discharge Core Measures Meds if any: Prescribed or Continued at Discharge Meds if any: NOT Prescribed or Continued at Discharge Cerebrovascular accident Inclusion Criteria At DC or during hospital stay patient has or had the following: CVA/TIA Diagnosis No Discharge Core Measures Meds if any: Prescribed or Continued at Discharge Meds if any: NOT Prescribed or Continued at Discharge Venous thromboembolism Inclusion Criteria VTE Diagnosis No VTE Type NONE VTE Confirmed by (Test) NONE Discharge Core Measures - Per Current guidelines, there needs to be overlap - treatment for the first 5 days of Warfarin therapy. - If discharged on Warfarin prior to 5 days of - overlap therapy, the patient will need to be - assessed for post discharge needs including - *Post discharge parental anticoagulation - *Warfarin and/or parental anticoagulation education - *Follow up date to check INR post discharge At least 5 days overlap therapy as Inpatient No Meds if any: Prescribed or Continued at Discharge Note: Overlap Therapy is Warfarin and Anticoagulant Meds if any: NOT Prescribed or Continued at Discharge
--- NOTE | 2017-11-05 11:50 | Cons- Cardiology ---
General Information and HPI Consulting Request Date of Consult: 11/05/17 Requested By: Valentin Nix MD Reason for Consult: Atypical chest pain Source of Information: patient, old records Exam Limitations: no limitations History of Present Illness: The patient is a 77-year-old woman with a past medical history of hypertension, hyperlipidemia as well as hypothyroidism and breast cancer (treated with chemotherapy and radiation). She as well had undergone a cardiac catheterization several years ago which demonstrated no significant flow restrictive disease she presents to our hospital with symptoms of atypical chest pain. The patient states that while at physical rest, she had onset of a neck fullness sensation which radiated to both shoulders. At the time, she felt hungry; however, stated she had mild nausea as well and did not eat. There was no concurrent diaphoresis nor palpitations. The patient otherwise denies prior symptoms similar to this, and states she has otherwise been active with exercise regularly without prompting symptoms. On arrival to the emergency room, an initial EKG demonstrated no acute changes, and symptoms were alleviated following administration of 1 nitroglycerin tablet. She has subsequently been ambulating in the hallway without difficulty. Troponin isoenzymes were negative 2. Allergies/Medications Allergies: Coded Allergies: Sulfa (Sulfonamide Antibiotics) (UNKNOWN 08/03/15) Home Med List: Aspirin (Ecotrin*) 81 MG TABLET.DR 1 TAB PO QPM PROPHO (Reported) Atorvastatin Calcium 10 MG TABLET 1 TAB PO QPM CHOLESTEROL (Reported) Atorvastatin Calcium 40 MG TABLET 40 MG PO 1700 Heart Cholecalciferol (Vitamin D3) (Vitamin D) 5,000 UNIT TABLET 1 TAB PO QPM VITAMIN SUPPORT (Reported) Cyanocobalamin (Vitamin B-12) 1,000 MCG TABLET 1 TAB PO QPM VITAMIN SUPPORT ( Reported) Levothyroxine Sodium 100 MCG TABLET 1 TAB PO DAILY AC THYROID (Reported) Magnesium Oxide (Magnesium) 250 MG TABLET 1 TAB PO QPM SUPPLEMENT (Reported) Metoprolol Succinate 25 MG TAB 0.5 TAB PO QPM HTN (Reported) Sertraline HCl 50 MG TABLET 1 TAB PO QPM DEPRESSION (Reported) Valsartan (Diovan) 40 MG TABLET 1 TAB PO DAILY HTN (Reported) Current Medications: Current Medications Sig/Stan Start time Last Medication Dose Route Stop Time Status Admin Acetaminophen 650 MG Q6P PRN 11/04 1745 AC PO Aspirin 0 .STK-MED ONE 11/04 1322 DC PO Aspirin 325 MG ONCE ONE 11/04 1315 DC 11/04 PO 11/04 1316 1328 Aspirin Buffered 81 MG QPM 11/04 2100 AC 11/04 PO 2300 Atorvastatin Calcium 40 MG 1700 11/05 1700 AC PO Enoxaparin Sodium 40 MG DAILY 11/05 0900 AC 11/05 SC 0854 Levothyroxine Sodium 0.1 MG DAILY AC 11/05 0700 AC 11/05 PO 0543 Losartan Potassium 12.5 MG DAILY 11/05 0900 AC 11/05 PO 0854 Metoprolol Succinate 12.5 MG QPM 11/04 2100 AC 11/04 PO 2301 Nitroglycerin 0.4 MG Q 5 MINUTES X 3 DO.. 11/04 1800 AC SL Nitroglycerin 0 .STK-MED ONE 11/04 1323 DC SL Nitroglycerin 0.4 MG ONCE ONE 11/04 1315 DC 11/04 SL 11/04 1316 1328 Sertraline HCl 50 MG QPM 11/04 2100 AC 11/04 PO 2300 Review of Systems Review of Systems: The review of systems is negative for chest pains, palpitations nor lightheadedness. The remainder of the 14 point review of systems is noncontributory with the exception of above. 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 Psychosocial History Where Do You Live? Home Who Do You Live With? spouse Services at Home: None Primary Language: German Smoking Status: Never Smoked ETOH Use: occasional use Functional Ability ADLs Independent: dressing, eating, toileting, bathing. Ambulation: independent IADLs Independent: shopping, housework, finances, food prep, telephone, transportation , medication admin. ECHO Results (as available) EF% 50 Exam & Diagnostic Data Vital Signs and I&O Vital Signs Date Time Temp Pulse Resp B/P B/P Pulse O2 O2 Flow FiO2 Mean Ox Delivery Rate 11/05 0854 72 118/72 11/05 0639 98.0 72 18 104/50 95 Room Air 11/04 2301 89 128/64 11/04 2223 98.2 90 18 128/64 96 Room Air 11/04 1954 99.3 93 18 108/57 95 Room Air 11/04 1817 99.1 87 17 114/59 95 Room Air 11/04 1502 97.1 83 16 151/64 98 Room Air 11/04 1339 97 Room Air 11/04 1206 78 16 119/63 97 Room Air Intake & Output 11/05 0811/05 0000 11/04 1600 11/04 0800 11/04 0000 Intake Total 220 220 0 Output Total Balance 220 220 0 Intake, IV 0 Intake, Oral 220 220 Patient 122 lb 125 lb Weight Weight Bed scale Reported by Patient Measurement Method Assessment/Plan Assessment/Plan 77-year-old woman with a past medical history of hypertension, hyperlipidemia as well as hypothyroidism and breast cancer (treated with chemotherapy and radiation). She as well had undergone a cardiac catheterization several years ago which demonstrated no significant flow restrictive disease she presents to our hospital with symptoms of atypical chest pain. Chest pain: The patient presents with atypical chest pain from ischemic cardiac etiology in that it had onset at rest, and is not exacerbated by physical activity. I have discussed this with her including the normal EKG and in the context of her prior negative cardiac catheterization. If her third troponin isoenzyme demonstrates no significant elevation, we will continue ambulating her in the hallway, and if asymptomatic may be discharged to home with outpatient follow-up. Consult Acknowledgment - Thank you for your consult request.
== END 2017-11-05 14:00 ==
LOC: ERH 12:03 → ERHI 15:58 → 1NO 15:58 → ENRESERV 17:54 → ENTRNSPT 20:43 → 1NO 21:08 → CMPTRNSPT 21:23 → ENPENDDIS 11-05 13:41 → 1NO 11-05 14:00
PROVIDERS: Physician Assistant Medical
DX: R07.89 Other chest pain (principal); I10 Essential (primary) hypertension; E78.5 Hyperlipidemia, unspecified; E03.9 Hypothyroidism, unspecified; Z85.3 Personal history of malignant neoplasm of breast; Z79.82 Long term (current) use of aspirin; K21.9 Gastro-esophageal reflux disease without esophagitis; Z79.899 Other long term (current) drug therapy
CPT/HCPCS: 6020; 36592; 71046; 82436; 93005; 93010; 96372; 97116-GP; 97161-GP; G0378; G8978-GP; G8979-GP; G8980-GP; J1650; J3490